=== PATIENT | female | born 2000 | race Hispanic/Latino ===

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

== ENCOUNTER 2022-08-20 12:53 | Observation (INO) | payer MEDICAID ==
[~2022-08-20] VITALS: Ht 160 cm; Wt 108.0 kg
[~2022-08-20 12:53] MED LIST changes: +DICL50TA9 PO; +MACR100 PO
[2022-08-20 12:54] VITALS: BP 148/79
[2022-08-20] MEDS: LACTATED RINGERS 1000ML 1,000 ML IV SCH ×2 (14:00→15:40)
[2022-08-20 14:33] LABS: APPEARANCE,URINE CLOUDY (CLEAR); BILIRUBIN,URINE NEGATIVE (NEGATIVE); COLOR,URINE YELLOW (YELLOW); GLUCOSE, URINE (UA) NEGATIVE (NEGATIVE); KETONES,URINE 5 mg/dL (NEGATIVE); LEUKOCYTE ESTERASE ,URINE 25 Leu/uL (NEGATIVE); NITRATE,URINE NEGATIVE (NEGATIVE); OCCULT BLOOD,URINE NEGATIVE (NEGATIVE); PROTEIN,URINE 70 mg/dL (NEGATIVE)
[2022-08-20 14:39] LABS: BACTERIA,URINE FEW /HPF (None Seen); MUCUS,URINE MOD LPF (None Seen); RBC,URINE 0-1 /HPF (0-1); SQUAMOUS EPITHELIAL CELL,UR MANY /HPF (0-2)
== END 2022-08-20 17:40 | disposition home or self-care (01) ==
LOC: EDH 12:53 → LDH 12:54
PROVIDERS: ADMIT Obstetrics & Gynecology; ATTEND Obstetrics & Gynecology
DX: O26.893 Other specified pregnancy related conditions, third trimester (principal); R10.9 Unspecified abdominal pain; Z3A.37 37 weeks gestation of pregnancy
CPT/HCPCS: 96361 ×2; 96360; 87088; 81001; G0378 ×4; J7120 ×2

== ENCOUNTER 2023-03-25 17:47 | Emergency (ER) | payer MEDICAID ==
[~2023-03-25] VITALS: Ht 162.6 cm; Wt 100.7 kg
[~2023-03-25 17:47] MED LIST changes: +ACET-2079 PO; -CEPH500B PO; -DICL50TA9 PO; -MACR100 PO; +PREN1TAB80 PO
[2023-03-25 18:41] LABS: RAPID GROUP A STREP negative (NEGATIVE)
[2023-03-25 18:46] LABS: SARS-CoV-2, RNA, NAAT POSITIVE SARS CoV-2 (NEGATIVE)
[2023-03-25 18:53] LABS: INFLUENZA TYPE A Negative For Type A (NEGATIVE); INFLUENZA TYPE B Negative For Type B (NEGATIVE)
[2023-03-25 19:25] LABS: BASOPHILS # (AUTO) 0.02 K/uL (0.00-0.20); BASOPHILS % (AUTO) 0.3 % (0.0-5.0); EOSINOPHILS # (AUTO) 0.09 K/uL (0.00-0.70); EOSINOPHILS % (AUTO) 1.2 % (0.0-8.0); HEMATOCRIT 32.4 % (36-48); IMMATURE GRANULOCYTE ABSOLUTE 0.03 K/uL (0-1); LYMPHOCYTES # (AUTO) 0.6 K/uL (1.0-4.8); LYMPHOCYTES % (AUTO) 8.6 % (21.0-51.0); MEAN CORPUSCULAR HEMOGLOBIN 29.9 pg (27.0-33.0); MEAN CORPUSCULAR HGB CONC 35.5 g/dL (32.0-36.0); MEAN CORPUSCULAR VOLUME 84.4 fL (80-100); MONOCYTES # (AUTO) 0.4 K/uL (0.1-1.0); MONOCYTES % (AUTO) 5.9 % (3.0-13.0); NEUTROPHILS # (AUTO) 6.2 K/uL (1.8-7.7); NEUTROPHILS % (AUTO) 83.6 % (40.0-77.0); PLATELET COUNT (AUTO) 288 K/uL (130-400); RED BLOOD CELL COUNT(AUTO) 3.84 MIL/uL (4.00-5.50); RED CELL DISTRIBUTION WIDTH 14.9 % (11.0-15.5); WHITE BLOOD COUNT (AUTO) 7.4 K/uL (4.8-10.8)
[2023-03-25 19:32] LABS: APPEARANCE,URINE CLOUDY (CLEAR); BILIRUBIN,URINE NEGATIVE (NEGATIVE); COLOR,URINE YELLOW (YELLOW); GLUCOSE, URINE (UA) NEGATIVE (NEGATIVE); OCCULT BLOOD,URINE NEGATIVE (NEGATIVE); PROTEIN,URINE 70 mg/dL (NEGATIVE)
[2023-03-25 19:33] LABS: KETONES,URINE 5 mg/dL (NEGATIVE); LEUKOCYTE ESTERASE ,URINE NEGATIVE Leu/uL (NEGATIVE); NITRATE,URINE NEGATIVE (NEGATIVE)
[2023-03-25 19:34] LABS: CREATININE 0.7 mg/dL (0.5-1.5); POTASSIUM 3.5 mmol/L (3.5-5.1)
[2023-03-25 19:34] LABS: ADD UA MICROSCOPIC YES
[2023-03-25 19:36] LABS: HCG,QUALITATIVE URINE POSITIVE (NEGATIVE)
[2023-03-25 19:37] LABS: BACTERIA,URINE RARE /HPF (None Seen); MUCUS,URINE FEW LPF (None Seen); SQUAMOUS EPITHELIAL CELL,UR FEW /HPF (0-2)
[2023-03-25 19:38] LABS: ALBUMIN 3.1 g/dL (3.5-5.0); BILIRUBIN,TOTAL 0.2 mg/dL (0.2-1.0); TOTAL PROTEIN, SERUM 7.5 g/dL (6.0-8.3)
[2023-03-25] MEDS ORDERED: ACETAMINOPHEN 325 MG TAB PO ONE (20:00)
[2023-03-25] MEDS ORDERED: NIRM1TAB PO (20:24)
[2023-03-25 20:26] VITALS: TEMP 100.4
[2023-03-25 20:27] VITALS: BP 118/62; PULSE 108; RESP 16; O2SAT 99
== END 2023-03-25 20:43 | disposition home or self-care (01) ==
LOC: EDH 17:47
DX: O98.512 Other viral diseases complicating pregnancy, second trimester (principal); R10.2 Pelvic and perineal pain; Z20.822 Contact with and (suspected) exposure to COVID-19; Z79.899 Other long term (current) drug therapy; Z98.890 Other specified postprocedural states; Z88.8 Allergy status to other drugs, medicaments and biological substances; Z3A.17 17 weeks gestation of pregnancy
CPT/HCPCS: 99284; 87635; 84484; 80053; 84702; 83690; 85025; 87880; 87804 ×2; 81001; 81025; 36415; 93005; C9803

== ENCOUNTER 2023-07-18 21:18 | Observation (INO) | payer MEDICAID ==
[~2023-07-18] VITALS: Ht 165.1 cm; Wt 105.2 kg
[~2023-07-18 21:18] MED LIST changes: +NIRM1TAB PO
[2023-07-18 21:21] VITALS: O2SAT 98
[2023-07-18 21:22] VITALS: BP 98/42; PULSE 75; RESP 18
[2023-07-18] MEDS ORDERED: CALCIUM GLUC 1GM/10ML VIAL IV PRN (22:30)
[2023-07-18] MEDS ORDERED: CELESTONE SOLUSPAN 6 MG/ML 5ML VIAL ONE (22:34)
[2023-07-18] MEDS: CELESTONE SOLUSPAN 6 MG/ML 5ML VIAL IM SCH (22:47)
[2023-07-18] MEDS: MAGNESIUM 4GM PREMIX 100ML 100 ML IV SCH (22:48)
[2023-07-18 23:00] LABS: HEMATOCRIT 28.8 % (36-48); MEAN CORPUSCULAR HEMOGLOBIN 26.6 pg (27.0-33.0); MEAN CORPUSCULAR HGB CONC 32.3 g/dL (32.0-36.0); MEAN CORPUSCULAR VOLUME 82.3 fL (80-100); RED BLOOD CELL COUNT(AUTO) 3.5 MIL/uL (4.00-5.50); RED CELL DISTRIBUTION WIDTH 14.1 % (11.0-15.5); WHITE BLOOD COUNT (AUTO) 11.5 K/uL (4.8-10.8)
[2023-07-18] MEDS: MAGNESIUM SULFATE 40GM/1000ML 1,000 ML IV PRN (23:38)
[2023-07-18 23:45] LABS: HIV 1&2 ANTIBODY Non-Reactive (Negative); HIV-1 p24 Antigen Non-Reactive (Negative)
[2023-07-19 02:35] LABS: ADD UA MICROSCOPIC YES; APPEARANCE,URINE CLEAR (CLEAR); BILIRUBIN,URINE NEGATIVE (NEGATIVE); COLOR,URINE YELLOW (YELLOW); GLUCOSE, URINE (UA) NEGATIVE (NEGATIVE); KETONES,URINE NEGATIVE (NEGATIVE); LEUKOCYTE ESTERASE ,URINE NEGATIVE Leu/uL (NEGATIVE); NITRATE,URINE NEGATIVE (NEGATIVE); OCCULT BLOOD,URINE NEGATIVE (NEGATIVE); PROTEIN,URINE 30 mg/dL (NEGATIVE)
[2023-07-19 02:37] LABS: BACTERIA,URINE RARE /HPF (None Seen); MUCUS,URINE RARE LPF (None Seen); RBC,URINE 0-1 /HPF (0-1); SQUAMOUS EPITHELIAL CELL,UR RARE /HPF (0-2)
[2023-07-19] MEDS: LACTATED RINGERS 1000ML 1,000 ML IV SCH (02:51)
[2023-07-19] MEDS ORDERED: ACETAMINOPHEN 500 MG TABLET PO ONE (03:30)
[2023-07-19 12:26] LABS: RAPID PLASMA REAGIN NONREACTIVE (NONREACTIVE)
== END 2023-07-19 09:55 | disposition home or self-care (01) ==
LOC: EDH 21:18 → INTOOBSV 21:41 → OBSVTOIN 21:41 → LDH 21:41
PROVIDERS: ADMIT Obstetrics & Gynecology; ATTEND Obstetrics & Gynecology
DX: O26.893 Other specified pregnancy related conditions, third trimester (principal); O99.513 Diseases of the respiratory system complicating pregnancy, third trimester; R10.9 Unspecified abdominal pain; J45.909 Unspecified asthma, uncomplicated; Z3A.34 34 weeks gestation of pregnancy; Z91.018 Allergy to other foods
CPT/HCPCS: 96365; 96366 ×2; 96372; 85027; 86592; 86850; 86900; 86901; 87340; 86701; 87390; 81001; 36415; J3475 ×2; J7120; A4314; G0378 ×7; 96360; J0702

== ENCOUNTER 2023-07-19 21:01 | Observation (INO) | payer MEDICAID ==
[2023-07-19] MEDS: CELESTONE SOLUSPAN 6 MG/ML 5ML VIAL IM ONE (21:35)
== END 2023-07-19 22:12 | disposition home or self-care (01) ==
LOC: LDH 21:01
PROVIDERS: ADMIT Obstetrics & Gynecology; ATTEND Obstetrics & Gynecology
DX: Z34.83 Encounter for supervision of other normal pregnancy, third trimester (principal); Z3A.34 34 weeks gestation of pregnancy
CPT/HCPCS: 96372; G0379; G0378

== ENCOUNTER 2023-07-22 03:01 | Observation (INO) | payer MEDICAID ==
[~2023-07-22] VITALS: Ht 162.6 cm; Wt 109.3 kg
[2023-07-22 03:02] VITALS: BP 118/77; PULSE 93; RESP 16
[2023-07-22 03:21] LABS: APPEARANCE,URINE CLEAR (CLEAR); BILIRUBIN,URINE NEGATIVE (NEGATIVE); COLOR,URINE LIGHT-YELLOW (YELLOW); GLUCOSE, URINE (UA) NEGATIVE (NEGATIVE); KETONES,URINE NEGATIVE (NEGATIVE); LEUKOCYTE ESTERASE ,URINE NEGATIVE Leu/uL (NEGATIVE); NITRATE,URINE NEGATIVE (NEGATIVE); OCCULT BLOOD,URINE NEGATIVE (NEGATIVE); PROTEIN,URINE 20 mg/dL (NEGATIVE)
[2023-07-22 03:26] LABS: ADD UA MICROSCOPIC YES
[2023-07-22 03:27] LABS: BACTERIA,URINE RARE /HPF (None Seen); RBC,URINE 0-1 /HPF (0-1); SQUAMOUS EPITHELIAL CELL,UR FEW /HPF (0-2); WBC,URINE 0-1 /HPF (0-1)
[2023-07-22] MEDS ORDERED: LACTATED RINGERS 1000ML IV SCH (04:00)
== END 2023-07-22 04:23 | disposition home or self-care (01) ==
LOC: EDH 03:01 → LDH 03:02
PROVIDERS: ADMIT Obstetrics & Gynecology; ATTEND Obstetrics & Gynecology
DX: O62.9 Abnormality of forces of labor, unspecified (principal); O99.323 Drug use complicating pregnancy, third trimester; O99.343 Other mental disorders complicating pregnancy, third trimester; O99.513 Diseases of the respiratory system complicating pregnancy, third trimester; F12.90 Cannabis use, unspecified, uncomplicated; J45.909 Unspecified asthma, uncomplicated; F31.9 Bipolar disorder, unspecified; Z3A.34 34 weeks gestation of pregnancy; Z91.02 Food additives allergy status
CPT/HCPCS: 96360; 81001; G0379; G0378

== ENCOUNTER 2023-08-06 14:39 | Inpatient (IN) | payer MEDICAID ==
[~2023-08-06] VITALS: Ht 162.6 cm; Wt 107.5 kg
[2023-08-06] MEDS: LACTATED RINGERS 1000ML IV PRN (15:56)
[2023-08-06 17:39] LABS: APPEARANCE,URINE CLEAR (CLEAR); BILIRUBIN,URINE NEGATIVE (NEGATIVE); COLOR,URINE LIGHT-YELLOW (YELLOW); GLUCOSE, URINE (UA) NEGATIVE (NEGATIVE); KETONES,URINE NEGATIVE (NEGATIVE); LEUKOCYTE ESTERASE ,URINE NEGATIVE Leu/uL (NEGATIVE); NITRATE,URINE NEGATIVE (NEGATIVE); OCCULT BLOOD,URINE NEGATIVE (NEGATIVE); PH,URINE 7.5 (5.0-8.0); PROTEIN,URINE NEGATIVE (NEGATIVE); UROBILINOGEN,URINE 0.2 mg/dL (0.2-1.0)
[2023-08-06 17:40] LABS: ADD UA MICROSCOPIC NO
[2023-08-06] MEDS ORDERED: OXYTOCIN-LR 30 UNITS/500ML 500 ML IV SCH (19:00)
[2023-08-06 19:30] LABS: HEMATOCRIT 26.9 % (36-48); MEAN CORPUSCULAR HEMOGLOBIN 24.9 pg (27.0-33.0); MEAN CORPUSCULAR HGB CONC 30.5 g/dL (32.0-36.0); MEAN CORPUSCULAR VOLUME 81.8 fL (80-100); PLATELET COUNT (AUTO) 297 K/uL (130-400); RED BLOOD CELL COUNT(AUTO) 3.29 MIL/uL (4.00-5.50); RED CELL DISTRIBUTION WIDTH 14.9 % (11.0-15.5); WHITE BLOOD COUNT (AUTO) 10.2 K/uL (4.8-10.8)
[2023-08-06] MEDS: LACTATED RINGERS 1000ML 1,000 ML IV PRN (20:12)
[2023-08-06] MEDS: CEFAZOLIN SODIUM 1 GM VIAL IVPB PRN (20:38)
[2023-08-06] MEDS: MORPHINE PF 100MG/10ML AMP IV ONE (21:02)
[2023-08-06 21:17] LABS: HIV 1&2 ANTIBODY Non-Reactive (Negative); HIV-1 p24 Antigen Non-Reactive (Negative)
[2023-08-06] MEDS ORDERED: LORATADINE/PSEUDOEPHED 5/120 MG 1 EACH TAB.SR.12H PO PRN (22:30)
[2023-08-06] MEDS ORDERED: OXYTOCIN-LR 30 UNITS/500ML 500 ML IV PRN (22:30)
[2023-08-06] MEDS ORDERED: PROMETHAZINE HCL 25 MG/ML 1ML AMPULE IM PRN ×2 (22:30)
[2023-08-06] MEDS ORDERED: NALOXONE HCL 0.4 MG/1 ML ML IVP PRN (22:30)
[2023-08-06] MEDS ORDERED: 0.9%NACL 10ML VIAL IVP PRN (22:30)
[2023-08-06] MEDS ORDERED: MEPERIDINE-PF 75 MG/ML SYG IM PRN (22:30)
[2023-08-06] MEDS: METOCLOPRAMIDE 10 MG/2 ML VIAL IVP PRN (22:44)
[2023-08-06] MEDS: ONDANSETRON 4MG INJ IVP PRN (22:44)
[2023-08-06] MEDS: CALDOLOR 800MG+NS 250ML 250 ML IV SCH (23:52)
[2023-08-07] MEDS: DIPHENHYDRAMINE HCL 25 MG CAPSULE PO PRN (01:02)
[2023-08-07] MEDS: DEXTROSE 5 %-0.45 % NACL 1,000 ML IV PRN (04:18)
[2023-08-07] MEDS: CEFAZOLIN SODIUM 1 GM VIAL IVPB SCH (04:18)
[2023-08-07] MEDS: LORATADINE 10 MG TABLET PO PRN (04:59)
[2023-08-07] MEDS ORDERED: DIPHENHYDRAMINE HCL 25 MG CAPSULE PO PRN ×2 (05:00→08:00)
[2023-08-07] MEDS ORDERED: CALDOLOR 800MG+NS 250ML 250 ML IV SCH (06:30)
[2023-08-07 06:56] LABS: MEAN CORPUSCULAR HEMOGLOBIN 24.7 pg (27.0-33.0); MEAN CORPUSCULAR HGB CONC 30.7 g/dL (32.0-36.0); MEAN CORPUSCULAR VOLUME 80.3 fL (80-100); RED BLOOD CELL COUNT(AUTO) 3.61 MIL/uL (4.00-5.50); RED CELL DISTRIBUTION WIDTH 14.8 % (11.0-15.5); WHITE BLOOD COUNT (AUTO) 12.2 K/uL (4.8-10.8)
[2023-08-07] MEDS ORDERED: PREN1TAB80 PO (07:28)
[2023-08-07] MEDS ORDERED: BISACODYL 10 MG SUPP.RECT RC PRN (08:00)
[2023-08-07] MEDS ORDERED: HYDROCODONE/ACETAMINOPHEN 5/325 MG TAB PO PRN (08:00)
[2023-08-07] MEDS ORDERED: LANOLIN 30GM OINTMENT TP PRN (08:00)
[2023-08-07] MEDS ORDERED: ACETAMINOPHEN 500 MG TABLET PO PRN (08:00)
[2023-08-07] MEDS: ACETAMINOPHEN WITH CODEINE 1 TAB TAB PO PRN (08:15)
[2023-08-07 09:15] VITALS: BP 107/58; PULSE 70; RESP 18
[2023-08-07] MEDS ORDERED: IBUPROFEN 800 MG TAB PO SCH (10:00)
[2023-08-07] MEDS: DOCUSATE SODIUM 100 MG CAP PO SCH (11:20)
[2023-08-07] MEDS: SIMETHICONE 80 MG TAB.CHEW PO PRN (11:20)
[2023-08-07 12:00] VITALS: BP 104/60; PULSE 79; RESP 18
[2023-08-07] MEDS: DIPH,PERTUSS(ACELL),TET VAC/PF 0.5 ML VIAL IM SCH (15:37)
[2023-08-07 15:44] VITALS: BP 104/64; PULSE 84; RESP 18
[2023-08-07 19:54] VITALS: BP 119/65; PULSE 91; RESP 20
[2023-08-07 23:17] VITALS: BP 109/58; PULSE 92; RESP 20
[2023-08-08] MEDS: IBUPROFEN 800 MG TAB ONE (00:02)
[2023-08-08 03:00] VITALS: BP 111/62; PULSE 90; RESP 20
[2023-08-08 07:30] VITALS: BP 105/63; PULSE 90; RESP 18
[2023-08-08] MEDS ORDERED: IBUPROFEN 800 MG TAB PO SCH ×2 (08:30→20:30)
[2023-08-08] MEDS: IBUPROFEN 800 MG TAB PO SCH (09:46)
[2023-08-08] MEDS ORDERED: ACET-2079 PO (09:50)
[2023-08-08 11:43] VITALS: BP 93/52; PULSE 69; RESP 18
== END 2023-08-08 12:40 | disposition home or self-care (01) | DRG 540 ==
LOC: EDH 14:39 → LDH 14:40 → OBSVTOIN 14:40 → WSH 08-07 09:12
PROVIDERS: ADMIT Obstetrics & Gynecology; ATTEND Obstetrics & Gynecology
PROC: 10D00Z1 Extraction of Products of Conception, Low, Open Approach (ICD-10-PCS; principal; 2023-08-06 20:30)
DX: O24.429 Gestational diabetes mellitus in childbirth, unspecified control (principal); O99.214 Obesity complicating childbirth; O34.211 Maternal care for low transverse scar from previous cesarean delivery; Z3A.36 36 weeks gestation of pregnancy; Z37.0 Single live birth
CPT/HCPCS: 36415; 59510; 81003; 82948; 85027; 86592; 86701; 86850; 86900; 86901; 86923; 87340; 87390; 90715; 96360; 96361; A4344; G0378; J0690; J1741; J2274; J2405; J2765; J7042; J7120; Q0163; A4248; A4649